=== PATIENT | female | born 1950 | race African-American/Black ===

== ENCOUNTER 2017-09-17 00:09 | Emergency (ER) | payer OTHER ==
[2017-09-17 00:32] VITALS: BP 126/66; PULSE 72; TEMP 98.2; BMI 34.1
--- NOTE | 2017-09-17 00:56 | PDOC ---
History of Present Illness - General History Source: Patient <Luís Bliss - Last Filed: 09/17/17 03:01> - General History Source: Patient Exam Limitations: No Limitations - History of Present Illness Initial Comments: 09/17/17 01:06 The patient is a 67 year old female, with a significant past medical history, who presents to the emergency department with headache and neck pain s/p mechanical fall 2 days ago. The patient states she was allowing people to step off of an elevator when she stepped back and tripped on someones walker. The patient reports hitting the right side of her head and neck, but denies LOC or dizziness following her fall. The patient states her headache is diffuse, but constant. She reports her neck is sore. The patient denies chest pain, shortness of breath, and dizziness. The patient denies fever, chills, nausea, vomit, diarrhea and constipation. The patient denies dysuria, frequency, urgency and hematuria. Allergies: Penicillins <Katty Olvera - Last Filed: 09/17/17 03:03> - General Chief Complaint: Injury Stated Complaint: FALL Time Seen by Provider: 09/17/17 00:50 Past History - Past Medical History Asthma: Yes Psychiatric Problems: Yes (schizo) - Immunization History Immunization Up to Date: Yes - Suicide/Smoking/Psychosocial Hx Smoking History: Unknown if ever smoked Have you smoked in the past 12 months: No Information on smoking cessation initiated: No Hx Alcohol Use: No Drug/Substance Use Hx: No <Luís Bliss - Last Filed: 09/17/17 03:01> <Katty Olvera - Last Filed: 09/17/17 03:03> - Past Medical History Allergies/Adverse Reactions: Allergies Allergy/AdvReac Type Severity Reaction Status Date / Time Penicillins Allergy Verified 09/17/17 00:29 Home Medications: Ambulatory Orders Albuterol 2.5/Ipratropium 0.5 [Duoneb -] 1 neb NEB Q4H 04/04/16 Aspirin [ASA -] 81 mg PO DAILY 04/04/16 Benztropine Mesylate [Cogentin -] 2 mg PO DAILY 04/04/16 Brimonidine Tartrate [Alphagan 0.2% -] 1 drop BID 04/04/16 Budesonide/Formeterol Fumarate [SYMBICORT 160/4.5mcg -] 2 puff IH DAILY Cholecalciferol (Vitamin D3) [Vitamin D-3] 50,000 unit PO WEEKLY 04/04/16 Divalproex *ER* [Depakote *ER* -] 1,000 mg PO HS 04/04/16 Divalproex [Depakote -] 500 mg PO DAILY 04/04/16 Docusate Sodium [Colace -] 100 mg PO TID 04/04/16 Fluphenazine HCl [Prolixin -] 5 mg PO HS 04/04/16 Insulin Glargine,Hum.rec.anlog [Lantus (nf)] 10 units SQ AM 04/04/16 Ipratropium Limestone 0.2 mg IH Q6H 04/04/16 Ipratropium [place] [Atrovent Hfa] 17 mcg IH Q6H 04/04/16 Latanoprost 0.005% Eye Drops [Xalatan 0.005% Eye Drops -] 1 drop OP HS 04/04/16 Magnesium Hydroxide [Milk of Magnesia] 30 ml PO HS 04/04/16 Metformin HCl [Glucophage] 1,000 mg PO BID 04/04/16 Olanzapine [Zyprexa] 15 mg PO BID 04/04/16 Simvastatin [Zocor -] 20 mg PO HS 04/04/16 Sodium Phosphate,Doddridge-Dibasic [Fleet Enema] 19 grams RC PRN 04/04/16 levoFLOXacin [Levaquin -] 500 mg PO DAILY #7 tablet 04/04/16 Review of Systems - Review of Systems Able to Perform ROS?: Yes Comments:: 09/17/17 01:07 CONSTITUTIONAL: Absent: fever, chills, diaphoresis, generalized weakness, malaise, loss of appetite HEENT: Absent: rhinorrhea, nasal congestion, throat pain, throat swelling, difficulty swallowing, mouth swelling, ear pain, eye pain, visual Changes CARDIOVASCULAR: Absent: chest pain, syncope, palpitations, irregular heart rate, lightheadedness , peripheral edema RESPIRATORY: Absent: cough, shortness of breath, dyspnea with exertion, orthopnea, wheezing, stridor, hemoptysis GASTROINTESTINAL: Absent: abdominal pain, abdominal distension, nausea, vomiting, diarrhea, constipation, melena, hematochezia GENITOURINARY: Absent: dysuria, frequency, urgency, hesitancy, hematuria, flank pain, genital pain MUSCULOSKELETAL: (+) neck pain. Absent: Back pain, arthralgia, joint swelling SKIN: Absent: rash, itching, pallor HEMATOLOGIC/IMMUNOLOGIC: Absent: easy bleeding, easy bruising, lymphadenopathy, frequent infections ENDOCRINE: Absent: unexplained weight gain, unexplained weight loss, heat intolerance, cold intolerance NEUROLOGIC: (+)headache, Absent: focal weakness or paresthesias, dizziness, unsteady gait, seizure, mental status changes, bladder or bowel incontinence PSYCHIATRIC: Absent: anxiety, depression, suicidal or homicidal ideation, hallucinations. <Katty Olvera - Last Filed: 09/17/17 03:03> *Physical Exam - Vital Signs Last Vital Signs Temp Pulse Resp BP Pulse Ox 98.2 F 72 14 126/66 93 L 09/17/17 00:29 09/17/17 00:29 09/17/17 00:29 09/17/17 00:29 09/17/17 00:29 <Luís Bliss - Last Filed: 09/17/17 03:01> - Vital Signs Last Vital Signs Temp Pulse Resp BP Pulse Ox 98.2 F 72 14 126/66 93 L 09/17/17 00:29 09/17/17 00:29 09/17/17 00:29 09/17/17 00:29 09/17/17 00:29 - Physical Exam Comments: 09/17/17 01:07 GENERAL: Well developed, well nourished. Awake and alert. No acute distress. HEENT: Normocephalic, atraumatic. PERRLA, EOMI. No conjunctival pallor. Sclera are non- icteric. Moist mucous membranes. Oropharynx is clear. No raccoon or echeverria signs. No deformity of calvarium. NECK: Supple. Full ROM. No JVD. Carotid pulses 2+ and symmetric, without bruits. No thyromegaly. No lymphadenopathy. no cervical spine tenderness, CARDIOVASCULAR: Regular rate and rhythm. No murmurs, rubs, or gallops. Distal pulses are 2+ and symmetric. PULMONARY: No evidence of respiratory distress. Lungs clear to auscultation bilaterally. No wheezing, rales or rhonchi. ABDOMINAL: Soft. Non-tender. Non-distended. No rebound or guarding. No organomegaly. Normoactive bowel sounds. MUSCULOSKELETAL Normal range of motion at all joints. No bony deformities or tenderness. No CVA tenderness. EXTREMITIES: No cyanosis. No clubbing. No edema. No calf tenderness. SKIN: Warm and dry. Normal capillary refill. No rashes. No jaundice. NEUROLOGICAL: Alert, awake, appropriate. Cranial nerves 2-12 intact. Normoreflexic in the upper and lower extremities. Normal speech. Toes are down-going bilaterally. Gait is normal without ataxia. PSYCHIATRIC: Cooperative. Good eye contact. Appropriate mood and affect. <Katty Olvera - Last Filed: 09/17/17 03:03> ED Treatment Course - RADIOLOGY Radiograph Interpretation: EXAM: HEAD CT WITHOUT CONTRAST HISTORY: Fall COMPARISON: None. FINDINGS: Involutional changes. No hemorrhage. No mass. No obvious infarct. Osseous structures are intact. Julio Alvarenga MD 09/17/2017 02:27 EST EXAM: CERVICAL SPINE CT W/O CONTR HISTORY: Patient fell COMPARISON: None. FINDINGS: Negative for cervical fracture or malalignment. Julio Alvarenga MD 09/17/2017 02:55 EST <Katty Olvera - Last Filed: 09/17/17 03:03> Medical Decision Making - Medical Decision Making 09/17/17 03:01 Dr. Bliss: The scribe's documentation has been prepared under my direction and personally reviewed by me in its entirery. I confirm that the note above accurately reflects all work, treatment, procedures, and medical decision making performed by me. <Luís Bliss - Last Filed: 09/17/17 03:01> *DC/Admit/Observation/Transfer - Discharge Dispostion Admit: No <Luís Bliss - Last Filed: 09/17/17 03:01> - Attestations Scribe Attestion: 09/17/17 01:08 Documentation prepared by Katty Olvera, acting as senior medical transcriptionist for Luís Bliss DO <Katty Olvera - Last Filed: 09/17/17 03:03> Diagnosis at time of Disposition: Closed head injury - Discharge Dispostion Disposition: HOME Condition at time of disposition: Stable - Patient Instructions Printed Discharge Instructions: DI for Closed Head Injury Additional Instructions: return if any problems. follow-up with your primary care doctor as needed.
== END 2017-09-17 03:44 ==
LOC: JER 00:09
DX: S09.8XXA Other specified injuries of head, initial encounter (principal); W18.09XA Striking against other object with subsequent fall, initial encounter; Y93.89 Activity, other specified; Y92.128 Other place in nursing home as the place of occurrence of the external cause; J45.909 Unspecified asthma, uncomplicated; F20.9 Schizophrenia, unspecified
CPT/HCPCS: 70450-TC; 72125-TC; 99281-25

== ENCOUNTER 2018-12-17 09:44 | Inpatient (IN) | payer OTHER | END 2018-12-20 15:18 | LOC: JER 09:44 → JERBED 13:53 → J8W 18:04 ==